=== PATIENT | female | born 1935 | race Caucasian/White ===

== ENCOUNTER 2022-11-09 12:02 | Emergency (ER) | payer MEDICARE ==
[~2022-11-09] VITALS: Ht 170.2 cm; Wt 124.7 kg
[2022-11-09] MEDS ORDERED: IBUPROFEN 400 MG TAB PO STA (12:41)
[2022-11-09] MEDS ORDERED: IBUPROFEN 400 MG TAB ONE (13:13)
[2022-11-09] MEDS ORDERED: HYDROCODON-ACE1 EA10 PO ×2 (15:28→18:09)
[2022-11-09] MEDS ORDERED: HYDROCODON-ACE1 EA11 PO (15:36)
[2022-11-09] MEDS ORDERED: MACROBID 100 M100 MG PO (20:05)
== END 2022-11-09 15:42 | disposition home or self-care (01) ==
LOC: FSED 12:06
DX: S32.010A Wedge compression fracture of first lumbar vertebra, initial encounter for closed fracture (principal); N39.0 Urinary tract infection, site not specified; B96.89 Other specified bacterial agents as the cause of diseases classified elsewhere; M25.511 Pain in right shoulder; W01.0XXA Fall on same level from slipping, tripping and stumbling without subsequent striking against object, initial encounter; Y92.89 Other specified places as the place of occurrence of the external cause
CPT/HCPCS: 72131; 81003; 99283